=== PATIENT | female | born 1960 | race Caucasian/White ===

== ENCOUNTER 2017-05-28 09:06 | Day surgery (SDC) | payer OTHER ==
[~2017-05-28 09:06] MED LIST: ASPIRIN; DENIES; DIABETES MEDICATION; LEVOTHYROXINE; LOSARTAN POTASSIUM; NEXIUM; OMEPRAZOLE; SIMVASTATIN
== END 2017-05-28 09:48 | disposition home or self-care (01) ==
LOC: GIL 09:06
PROVIDERS: ATTEND Internal Medicine Gastroenterology
DX: R15.9 Full incontinence of feces (principal); Z53.8 Procedure and treatment not carried out for other reasons

== ENCOUNTER 2017-06-25 08:34 | Day surgery (SDC) | payer OTHER ==
[~2017-06-25] VITALS: Ht 162.6 cm; Wt 126.5 kg
[2017-06-25 09:46] VITALS: Ht 162.6 cm; Wt 126.5 kg
[2017-06-25] MEDS ORDERED: RANI-428 PO (09:58)
[2017-06-25] MEDS ORDERED: ATOR40TA68 PO (09:58)
[2017-06-25] MEDS ORDERED: JANUVIA PO (09:58)
[2017-06-25] MEDS ORDERED: LORA10CA9 PO (09:58)
[2017-06-25] MEDS ORDERED: INSULIN SUBCUTANE (09:58)
[2017-06-25] MEDS ORDERED: VIT D3 PO (09:58)
[2017-06-25] MEDS ORDERED: [UNRECOGNIZED DRUG - OTHER] PO (10:00)
[2017-06-25] MEDS ORDERED: PROPOFOL 60 ML ONE (10:07)
[2017-06-25] MEDS ORDERED: FENTAnyl 50 MCG/ML VIAL ONE (10:22)
[2017-06-25 10:26] VITALS: BP 150/69; PULSE 74; RESP 12
[2017-06-25] MEDS ORDERED: PROPOFOL 20 ML ONE (11:04)
--- NOTE | 2017-06-25 11:06 | OPPN ---
Date/Time of Note Date/Time of Note DATE: 06/25/17 TIME: 11:04 Proc Note GI Procedure Date 06/25/17 Indication: screening/surveillance, diagnostic Pre-procedure Diagnosis Severe heartburn Colon cancer screening Post-procedure Diagnosis Erosive esophagitis Erosive gastritis Duodenitis Colon polyp Diverticulosis Procedure Performed: Endoscopy, Colonoscopy Surgeon see signature line Hotel Room Attendant none Anesthesia Type: MAC Tourniquet Time none EBL none Transfusion required none Biopsy 1: Gastric biopsies 3 of them Biopsy 2: Cold snare polypectomy Grafts/Implants none Tubes/Drains none Complication(s) none Disposition: home Procedure Description See dictated report MARY HOLDEN MD Jun 25, 2017 11:06
--- NOTE | 2017-06-25 11:06 | OPPN ---
Date/Time of Note Date/Time of Note DATE: 06/25/17 TIME: 11:04 Proc Note GI Procedure Date 06/25/17 Indication: screening/surveillance, diagnostic Pre-procedure Diagnosis Severe heartburn Colon cancer screening Post-procedure Diagnosis Erosive esophagitis Erosive gastritis Duodenitis Colon polyp Diverticulosis Procedure Performed: Endoscopy, Colonoscopy Surgeon see signature line City Supervisor none Anesthesia Type: MAC Tourniquet Time none EBL none Transfusion required none Biopsy 1: Gastric biopsies 3 of them Biopsy 2: Cold snare polypectomy Grafts/Implants none Tubes/Drains none Complication(s) none Disposition: home Procedure Description See dictated report MARY HOLDEN MD Jun 25, 2017 11:06
--- NOTE | 2017-06-25 11:36 | GILP ---
DATE OF PROCEDURE: 06/25/2017 PROCEDURE PERFORMED: EGD with biopsy and colonoscopy with polypectomy. INDICATION: A 57-year-old female undergoing this procedure for chronic heartburn and colonoscopy fo r colon cancer screening. The risks of the procedure, related and unrelated complications, anesthet ic risks, alternatives were thoroughly discussed in view of multiple comorbidities. She understood, agreed, consented for it. DESCRIPTION OF PROCEDURE: The patient was brought to the GI lab, sedated by the anesthesiologist. After obtaining sedation, scope was passed with much ease into esophagus. She had multiple erosions identified, LA class B. Stomach mucosa also revealed multiple erosions in the antrum. Three to fo ur biopsies obtained to rule out H. pylori infection. Duodenal mucosa revealed duodenitis. Second part was within normal limits. Retroversion done, no growth or hiatal hernia identified. Scope was straightened out and removed with good patient tolerance. We could not take the picture because th e endoscope failed to take any pictures. IMPRESSION: 1. Erosive esophagitis, LA class B. 2. Erosive gastritis. 3. Duodenitis. PLAN: Review histopathology. The patient needs to be on a PPI. COLONOSCOPY REPORT: She was turned around, scope was passed with much ease into rectum. She had so lid stool in the rectum and sigmoid colon precluding the visibility by 10-15%, advanced all the way up to the right side of the colon. Again, the prep was poor, making it technically difficult to vis ualize, so the scope was removed. While coming out, mucosa thoroughly inspected, solitary diverticu lum seen in the sigmoid colon. There was a polyp which was about 9-10 mm in diameter, successfully removed by cold snare technique. She also had hemorrhoids. 1. Poor prep. 2. Cold snare polypectomy done for a 10 mm polyp in the rectum. 3. Solitary diverticulosis. 4. Scope up to right side of the colon and terminated because of poor prep. PLAN: The patient definitely needs a repeat colonoscopy in 1 year. With the proper prep and her co mpliance has to be good in taking prep and remaining on a clear liquid diet. Dictated By: MARY COLLADO/BORIS Conf#: [id number] DID#: [id number]
[2017-06-25 11:46] VITALS: BP 121/71; RESP 20
[2017-06-25] MEDS ORDERED: PHENYLephrine (100 MCG/ML) 5ML SYG ONE (12:36)
== END 2017-06-25 12:33 | disposition home or self-care (01) ==
LOC: GIL 08:34
PROVIDERS: ATTEND Internal Medicine Gastroenterology
DX: R12 Heartburn (principal); K62.1 Rectal polyp; K20.8 Other esophagitis; K29.80 Duodenitis without bleeding; K29.60 Other gastritis without bleeding; E03.9 Hypothyroidism, unspecified; E11.9 Type 2 diabetes mellitus without complications; I10 Essential (primary) hypertension; E78.5 Hyperlipidemia, unspecified
CPT/HCPCS: 43239; 45378; 82962; 88305; J2370; J3010